=== PATIENT | male | born 1945 | race Caucasian/White ===

== ENCOUNTER 2019-03-05 21:37 | Inpatient (IN) | payer MEDICAID, MEDICARE ==
[~2019-03-05] VITALS: Ht 175.3 cm; Wt 82.8 kg
[~2019-03-05 21:37] MED LIST: ALBU8.5H8 INH; FLUT9.9S NS; PRED20TA PO
[2019-03-05] MEDS ORDERED: HYDROCORTISONE SOD SUCCINATE 100 MG/2 ML VIAL IV ONE ×3 (22:15→23:58)
[2019-03-05] MEDS ORDERED: IV NORMAL SALINE 1000 ML BAG IV ONE (22:15)
[2019-03-05] MEDS ORDERED: DEXAMETHASONE SOD PHOSPHATE 4 MG INJ IV ONE (22:15)
[2019-03-05] MEDS ORDERED: CEFTRIAXONE 1 G in IV DEXTROSE 5% 50 ML IV ONE (22:15)
[2019-03-05] MEDS ORDERED: GENTAMICIN SULFATE INJ 80 MG in IV DEXTROSE 5% 100 ML IV ONE (22:15)
[2019-03-05] MEDS ORDERED: VANCOMYCIN IV 1,000 MG in IV DEXTROSE 5% 250 ML IV ONE (22:15)
--- NOTE | 2019-03-05 22:15 | NUR ---
Pt is brought in to ER by girlfriend and friend via wheelchair with c/o chills, body ache, nausea, and vomiting that started this am. Pt placed on ic engineer, showing normal sinus rhythm. SA02 98% room air. Vital signs stable. Pt is AAOx3.
[2019-03-05 22:24] LABS: BASOPHILS # (AUTO) 0.1 K/uL (0.0-8.0); BASOPHILS % (AUTO) 0.3 % (0.0-2.0); CARBON DIOXIDE 17 mmol/L (21-32); CHLORIDE 105 mmol/L (98-107); EOSINOPHILS % (AUTO) 0.1 % (0.0-7.0); GLUCOSE 151 mg/dL (74-106); HEMATOCRIT 49.8 % (36.7-47.1); HEMOGLOBIN 16.5 g/dL (12.5-16.3); LYMPHOCYTES # (AUTO) 4.5 K/uL (20.0-40.0); LYMPHOCYTES % (AUTO) 26.4 % (20.5-51.5); MEAN CORPUSCULAR HEMOGLOBIN 31.7 uug (23.8-33.4); MEAN CORPUSCULAR HGB CONC 33 g/dL (32.5-36.3); MEAN CORPUSCULAR VOLUME 95.3 fL (73.0-96.2); MONOCYTES # (AUTO) 1.1 K/uL (2.0-10.0); MONOCYTES % (AUTO) 6.7 % (0.0-11.0); NEUTROPHILS # (AUTO) 11.3 K/uL (1.8-8.9); NEUTROPHILS % (AUTO) 66.5 % (38.5-71.5); PLATELET COUNT (AUTO) 375 K/uL (152-348); POTASSIUM 4.4 mmol/L (3.5-5.1); RED BLOOD CELL COUNT(AUTO) 5.22 MIL/uL (4.06-5.63); UREA NITROGEN, BLOOD 23 mg/dL (7-18)
[2019-03-05] MEDS ORDERED: CEFTRIAXONE 1 G VIAL ONE (22:24)
[2019-03-05] MEDS ORDERED: DEXAMETHASONE SOD PHOSPHATE 10 MG INJ ONE (22:25)
[2019-03-05] MEDS ORDERED: LOSA25TA27 PO (22:29)
[2019-03-05] MEDS ORDERED: symbicort INH (22:29)
[2019-03-05] MEDS ORDERED: ALLO100T PO (22:29)
[2019-03-05] MEDS ORDERED: ONDANSETRON IV *ER 4 MG/2 ML VIAL IV ONE (22:30)
[2019-03-05] MEDS ORDERED: ONDANSETRON 4 MG/2 ML VIAL ONE (22:30)
[2019-03-05] MEDS ORDERED: MONT10TA22 PO (22:30)
[2019-03-05 22:37] LABS: ALANINE AMINOTRANSFERASE 68 U/L (16-63); ALKALINE PHOSPHATASE 82 U/L (50-136); ASPARTATE AMINOTRANSFERASE 27 U/L (15-37); BILIRUBIN,DIRECT 0.3 mg/dL (0.0-0.2); BILIRUBIN,TOTAL 1.1 mg/dL (0.2-1.0)
[2019-03-05] MEDS ORDERED: VANCOMYCIN IV 200 ML ONE (22:57)
--- NOTE | 2019-03-05 23:03 | NUR ---
Pt states he's starting to feel better.
--- NOTE | 2019-03-05 23:25 | NUR ---
Pt provided urine sample, sent to lab.
[2019-03-05 23:50] LABS: *BILIRUBIN,URIN NEGATIVE (NEGATIVE); *BLOOD, URINE NEGATIVE (NEGATIVE); *CLARITY,URINE CLEAR (CLEAR); *COLOR,URINE YELLOW (YELLOW); *KETONES,URINE 3+ (NEGATIVE); *UROBILINOGEN,URINE 0.2 E.U./dl (NORMAL); LEUKOCYTE ESTERASE ,URINE NEGATIVE (NEGATIVE); NITRITE, URINE NEGATIVE (NEGATIVE); UGLUCOSE NEGATIVE (NEGATIVE)
[2019-03-05] MEDS ORDERED: IV NS 1000 ML 1,000 ML IV ONE (23:50)
[2019-03-05] MEDS ORDERED: GENTAMICIN SULFATE 80 MG/2 ML VIAL ONE (23:52)
[2019-03-05 23:56] LABS: BACTERIA,URINE NONE SEEN /HPF (NONE SEEN); MUCUS,URINE MODERATE /LPF (0-FEW); SQUAMOUS EPITHELIAL CELL,UR FEW /HPF (NONE SEEN); WBC,URINE 0-3 /HPF (0-3)
[2019-03-06] MEDS ORDERED: HYDROCORTISONE SOD SUCCINATE 100 MG/2 ML VIAL IV ONE
[2019-03-06] MEDS ORDERED: ONDANSETRON 4 MG/2 ML VIAL ONE (00:14)
[2019-03-06] MEDS ORDERED: ONDANSETRON IV *ER 4 MG/2 ML VIAL IV ONE (00:15)
--- NOTE | 2019-03-06 00:20 | NUR ---
2nd lactic acid blood drawn, sent to lab.
--- NOTE | 2019-03-06 00:28 | NUR ---
Paged [facility] for panel call. Pending call back from Dr. Genao.
--- NOTE | 2019-03-06 00:30 | NUR ---
ALPHONSO Henriquez MD, speaking to Dr. Genao on telephone.
--- NOTE | 2019-03-06 00:37 | NUR ---
Pt. admitted to Telemetry, under care of Dr. Genao. Diagnosis: Septic Shock. Belongs List completed
[2019-03-06 01:00] VITALS: BP 156/73
--- NOTE | 2019-03-06 01:00 | NUR ---
Admitted a 74 years old male with Diagnosis of Sepsis. Accompanied by patient KURT Mcneil. Patient AAOx4. In no acute distress. Denies any pain or SOB at this time. IV site on right FA intact and patent with Gentamicin IV ABX infusing. IV site on left AC intact and patent, with IVF infusing. NSR on tele at 84/min. Routine admission care done. Plan of care initiated. Safety measure initiated and call gordon within reach.
[2019-03-06] MEDS ORDERED: ACETAMINOPHEN 325 MG TABLET PO PRN (01:30)
[2019-03-06] MEDS ORDERED: ZOLPIDEM 5 MG TABLET PO PRN (01:30)
[2019-03-06] MEDS ORDERED: Z GUARD REMEDY PASTE 57 GM TUBE TOP PRN (01:30)
[2019-03-06] MEDS ORDERED: HYDROCODONE/APAP 5-325MG TABLET PO PRN (01:30)
[2019-03-06] MEDS ORDERED: MAGNESIUM HYDROXIDE 30 ML LIQUID UDC PO PRN (01:30)
[2019-03-06] MEDS ORDERED: PIPERACILLIN/TAZOBACTAM/D5W 3.375 G in PREMIXED 1 EACH IV ONE (02:00)
[2019-03-06] MEDS ORDERED: PIPERACILLIN/TAZOBACTAM/D5W 50 ML IV ONE (02:25)
[2019-03-06 05:44] VITALS: BP 151/74
--- NOTE | 2019-03-06 06:14 | NUR ---
AAOx4. In no acute distress. Denies any pain or SOB. IV site on right FA intact and patent IVF infusing. IV site on left AC intact and patent. NSR on tele at 92/min. No adverse reaction noted from IV ABX. Denies any dizziness, n/v and chills. Safety measure maintained and call gordon within reach.
--- NOTE | 2019-03-06 08:01 | NUR ---
Received patient. In no acute distress. A+Ox4. Pt denies any pain or SOB. B/S clear/diminished. IV site on right FA intact and patent IVF infusing. IV site on left AC intact and patent. NSR on tele.Denies any dizziness, n/v and chills at this time. Bed in low position. Safety measure maintained and call gordon within reach.
[2019-03-06] MEDS: HYDROCORTISONE SOD SUCCINATE 100 MG/2 ML VIAL IV SCH ×2 (08:41→20:29)
[2019-03-06] MEDS: ALLOPURINOL 100 MG TABLET PO SCH ×2 (08:41→16:21)
[2019-03-06] MEDS: IV NS 1000 ML 1,000 ML IV PRN (09:32)
--- NOTE | 2019-03-06 09:40 | NUR ---
PATIENT SEEN AND EXAMINED BY DR DIANE WITH NEW ORDERS AND NOTED.
[2019-03-06 10:12] LABS: BASOPHILS % (AUTO) 0.3 % (0.0-2.0); EOSINOPHILS % (AUTO) 0.2 % (0.0-7.0); HEMATOCRIT 45.2 % (36.7-47.1); LYMPHOCYTES # (AUTO) 1.2 K/uL (20.0-40.0); LYMPHOCYTES % (AUTO) 8.6 % (20.5-51.5); MEAN CORPUSCULAR HEMOGLOBIN 31.8 uug (23.8-33.4); MEAN CORPUSCULAR HGB CONC 33 g/dL (32.5-36.3); MEAN CORPUSCULAR VOLUME 95.8 fL (73.0-96.2); MONOCYTES # (AUTO) 0.2 K/uL (2.0-10.0); MONOCYTES % (AUTO) 1.7 % (0.0-11.0); NEUTROPHILS # (AUTO) 12.9 K/uL (1.8-8.9); NEUTROPHILS % (AUTO) 89.2 % (38.5-71.5); PLATELET COUNT (AUTO) 321 K/uL (152-348); RED BLOOD CELL COUNT(AUTO) 4.72 MIL/uL (4.06-5.63); WHITE BLOOD COUNT (AUTO) 14.5 K/uL (3.6-10.2)
[2019-03-06 10:22] LABS: CARBON DIOXIDE 21 mmol/L (21-32); CHLORIDE 109 mmol/L (98-107); CREATININE 1.8 mg/dL (0.6-1.3); GLUCOSE 150 mg/dL (74-106); POTASSIUM 4.2 mmol/L (3.5-5.1); UREA NITROGEN, BLOOD 19 mg/dL (7-18)
[2019-03-06 10:25] LABS: CARBON DIOXIDE 21 mmol/L (21-32); CHLORIDE 110 mmol/L (98-107); CREATININE 1.8 mg/dL (0.6-1.3); GLUCOSE 151 mg/dL (74-106); POTASSIUM 4.1 mmol/L (3.5-5.1); UREA NITROGEN, BLOOD 22 mg/dL (7-18); VANCOMYCIN,RANDOM 10.2 ug/mL (18.0-26.0)
[2019-03-06 10:33] LABS: THYROID STIMULATING HORMONE 0.479 mIU/mL (0.358-3.740)
--- NOTE | 2019-03-06 10:38 | NUR ---
CLINICAL PHARMACY NOTE:VANCOMYCIN DOSING S To start vancomycin dosing on 74 y/o male patient for sepsis O Temp 97.7 BUN 18 Scr 1.8 WBC 14.5 Assessment/Plan Due to unstable/elevated srcr, will dose by random level. Patient received vanco 1gm IVPB x1 on 03/05 at 2300. Since vanco random level today is 10.2, Will give vanco 1250mg IVPB x1 today at 1100. Pharmacy shall review srcr in am & decide when to order next random level for further dosing. Will follow.
--- NOTE | 2019-03-06 10:48 | NUR ---
Lab contacted floor. lactic acid of 2.2 @ 1030
[2019-03-06 10:54] LABS: ALANINE AMINOTRANSFERASE 116 U/L (16-63); ALKALINE PHOSPHATASE 66 U/L (50-136); ASPARTATE AMINOTRANSFERASE 62 U/L (15-37); BILIRUBIN,TOTAL 0.8 mg/dL (0.2-1.0); CHOLESTEROL 181 mg/dL (<200); HDL CHOLESTEROL 57 mg/dL (40-60); MAGNESIUM 1.6 mg/dL (1.8-2.4); PHOSPHOROUS 3.1 mg/dL (2.5-4.9); TOTAL PROTEIN, SERUM 7.1 g/dL (6.4-8.2); TRIGLYCERIDES 49 MG/DL (30-150)
[2019-03-06 11:00] VITALS: BP 163/79
[2019-03-06] MEDS ORDERED: VANCOMYCIN IV 1,250 MG in IV DEXTROSE 5% 500 ML IV ONE (11:00)
[2019-03-06] MEDS: PIPERACILLIN/TAZOBACTAM/D5W 3.375 G in PREMIXED 1 EACH IV SCH ×2 (11:04→18:03)
--- NOTE | 2019-03-06 12:36 | NUR ---
Pt's BP is 163/79. Pt is asymptomatic. No signs of distress noted. Contacted Dr. Vuong. Left message for Dr. Vuong making him aware of pt's condition. Awaiting 's response.
[2019-03-06] MEDS: CLONIDINE HCL 0.1 MG TABLET PO PRN (13:01)
--- NOTE | 2019-03-06 14:55 | NUR ---
Contacted Dr. Vuong. Pt stated feeling slight SOB when ambulating to bathroom and back to bed. Awaiting for 's call back.
[2019-03-06] MEDS: FLUTICASONE/VILANTEROL 1 EACH BLST.W.DEV INH SCH (15:15)
[2019-03-06] MEDS ORDERED: ALBUTEROL SULFATE 2.5 MG/3 ML NEBU NEB PRN (15:15)
--- NOTE | 2019-03-06 15:20 | NUR ---
Dr. Vuong called back regarding Pt's SOB condition. stated that he will place orders. No acute distress noted at this time.
[2019-03-06 16:00] VITALS: BP 130/79
[2019-03-06] MEDS ORDERED: MAGNESIUM SULFATE/D5W 100 ML IV SCH (16:00)
--- NOTE | 2019-03-06 16:56 | NUR ---
PT REFUSED BREO-ELLIPTA 100-25 MCG 1 PUFF ONCE DAILY @ 1515. PT STATED USUALLY NOT FEELING WELL AFTER TAKING THIS MEDICATION. PT STATES BREATHING WELL. NO SOB AFTER VENTOLIN HHN ADMINISTERED BY RT. NO ACUTE DISTRESS NOTED @THIS TIME.
[2019-03-06] MEDS ORDERED: MONTELUKAST SODIUM 10 MG TABLET PO SCH (18:00)
[2019-03-06] MEDS: MONTELUKAST SODIUM 10 MG TABLET PO SCH (18:02)
--- NOTE | 2019-03-06 18:41 | NUR ---
PT RESTING COMFORTABLY IN BED. PT A+OX4. NO ACUTE DISTRESS NOTED AT THIS TIME. NO SOB NOTED AT THIS TIME. CONTINUE TO MONITOR. CONTINUE PLAN OF CARE.
--- NOTE | 2019-03-06 19:00 | NUR ---
AWAKE ALERT X3, NO COMLAINTS , VITAL SIGNS STABLE NO SOB. IN NO ACUTE DISTRESS.,
[2019-03-06 19:24] LABS: *BILIRUBIN,URIN NEGATIVE (NEGATIVE); *BLOOD, URINE NEGATIVE (NEGATIVE); *CLARITY,URINE CLEAR (CLEAR); *COLOR,URINE YELLOW (YELLOW); *KETONES,URINE NEGATIVE (NEGATIVE); *UROBILINOGEN,URINE 0.2 E.U./dl (NORMAL); LEUKOCYTE ESTERASE ,URINE NEGATIVE (NEGATIVE); NITRITE, URINE NEGATIVE (NEGATIVE); PH,URINE 5.5 (5.0-8.0); UGLUCOSE NEGATIVE (NEGATIVE)
[2019-03-06 19:31] LABS: *CREATININE,URINE 144.5 mg/dL (30-125); *URINE TOTAL PROTEIN RANDOM 40.7 mg/dL (<150/24HR)
[2019-03-06 19:33] LABS: BACTERIA,URINE NONE SEEN /HPF (NONE SEEN); SQUAMOUS EPITHELIAL CELL,UR NONE SEEN /HPF (NONE SEEN)
[2019-03-06 19:34] LABS: RBC,URINE 0-3 /HPF (0-3); WBC,URINE 0-3 /HPF (0-3)
[2019-03-06 19:42] VITALS: BP 141/72
[2019-03-06] MEDS: ATORVASTATIN 10 MG TABLET PO SCH (20:29)
[2019-03-07] VITALS: BP 140/80
[2019-03-07] MEDS: IV NS 1000 ML 1,000 ML IV PRN (00:30)
[2019-03-07] MEDS: PIPERACILLIN/TAZOBACTAM/D5W 3.375 G in PREMIXED 1 EACH IV SCH (03:30)
[2019-03-07 04:22] VITALS: BP 126/71
--- NOTE | 2019-03-07 05:01 | NUR ---
slept most of the nite,no complaints made,in no acute distress. telemetry sinus rhythm ,sinus myrna.
[2019-03-07 06:32] LABS: HEMATOCRIT 39.8 % (36.7-47.1); HEMOGLOBIN 13.2 g/dL (12.5-16.3); LYMPHOCYTES # (AUTO) 2.4 K/uL (20.0-40.0); LYMPHOCYTES % (AUTO) 11.4 % (20.5-51.5); MEAN CORPUSCULAR HEMOGLOBIN 32.2 uug (23.8-33.4); MEAN CORPUSCULAR HGB CONC 33 g/dL (32.5-36.3); MONOCYTES # (AUTO) 1.3 K/uL (2.0-10.0); MONOCYTES % (AUTO) 6.2 % (0.0-11.0); NEUTROPHILS # (AUTO) 17.5 K/uL (1.8-8.9); NEUTROPHILS % (AUTO) 82.4 % (38.5-71.5); PLATELET COUNT (AUTO) 279 K/uL (152-348); WHITE BLOOD COUNT (AUTO) 21.3 K/uL (3.6-10.2)
[2019-03-07 06:49] LABS: CARBON DIOXIDE 21 mmol/L (21-32); CHLORIDE 113 mmol/L (98-107); CREATINE KINASE, TOTAL 159 U/L (39-308); CREATININE 1.9 mg/dL (0.6-1.3); GLUCOSE 107 mg/dL (74-106); MAGNESIUM 2.2 mg/dL (1.8-2.4); PHOSPHOROUS 4.1 mg/dL (2.5-4.9); POTASSIUM 3.9 mmol/L (3.5-5.1); UREA NITROGEN, BLOOD 25 mg/dL (7-18)
--- NOTE | 2019-03-07 07:45 | NUR ---
Received patient without signs of acute distress. A+Ox4. Pt denies any pain or SOB. B/S clear/diminished. IV site on right FA intact and patent IVF infusing. NSR on tele.Denies any dizziness, n/v and chills at this time. Bed in low position. Safety measure maintained and call gordon within reach.
[2019-03-07] MEDS: FLUTICASONE/VILANTEROL 1 EACH BLST.W.DEV INH SCH (09:00)
[2019-03-07] MEDS: HYDROCORTISONE SOD SUCCINATE 100 MG/2 ML VIAL IV SCH (09:19)
[2019-03-07] MEDS: ALLOPURINOL 100 MG TABLET PO SCH ×2 (09:19→17:35)
[2019-03-07] MEDS: IV 1/2NS 1000 ML 1,000 ML IV PRN (10:59)
[2019-03-07] MEDS ORDERED: LEVOFLOXACIN 250MG /D5W 250 MG in PREMIXED 1 EACH IV SCH (11:30)
[2019-03-07 12:08] VITALS: BP 131/73
--- NOTE | 2019-03-07 12:45 | NUR ---
PT STATES OPTIMISM IN POSSIBILITY OF BEING DISCHARGED TODAY. EXPLAINED TO PT THAT MD WILL NEED TO EVALUATE AND WRITE DISCHARGE ORDERS. PT RESTING COMFORTABLY IN BED. PT A+OX4. NO ACUTE DISTRESS NOTED AT THIS TIME. NO SOB NOTED AT THIS TIME. CONTINUE TO MONITOR. CONTINUE PLAN OF CARE.
[2019-03-07 16:00] VITALS: BP 154/97
[2019-03-07] MEDS: CLONIDINE HCL 0.1 MG TABLET PO PRN (16:55)
--- NOTE | 2019-03-07 16:55 | NUR ---
informed Dr Joe that pt tolerated walking in the hallway well earlier, no shortness of breath, no dizziness but BP 154/97- catapres 0.1 mg po given
[2019-03-07] MEDS ORDERED: ACET325T53 PO (16:56)
[2019-03-07] MEDS ORDERED: MONT10TA22 PO (16:56)
[2019-03-07] MEDS ORDERED: LEVO500T2 PO (16:56)
[2019-03-07] MEDS ORDERED: ATOR10TA PO (16:56)
--- NOTE | 2019-03-07 16:59 | NUR ---
change of rhythm- atrial fib 130's, pt denies of chest pain, BP checked- 181/100 , informed Dr Masters.
[2019-03-07 17:00] VITALS: BP 181/100
[2019-03-07] MEDS ORDERED: APIXABAN 5 MG TABLET PO SCH (17:15)
--- NOTE | 2019-03-07 17:15 | NUR ---
remains on afib/flutter 140, stat EKG ordered, informed Dr Berumen(county manager) informed of change of rhythm
[2019-03-07] MEDS: MONTELUKAST SODIUM 10 MG TABLET PO SCH (17:35)
--- NOTE | 2019-03-07 17:59 | NUR ---
pt transferred as tele-TD- to have amiodarone bolus followed by a drip- report given to Mohini THAPA, pt seen by Dr Berumen and Dr Iverson spoke to him at length as well
[2019-03-07] MEDS ORDERED: HEPARIN/D5W DRIP 500 ML IV PRN (18:00)
[2019-03-07] MEDS ORDERED: AMIODARONE HCL IV 900 MG in IV DEXTROSE 5% 482 ML IV PRN (18:00)
[2019-03-07] MEDS ORDERED: AMIODARONE HCL IV 150 MG in IV DEXTROSE 5% 100 ML IV ONE (18:00)
--- NOTE | 2019-03-07 18:30 | NUR ---
Report received from Kelin Mendez at this time as reported patient sustaining A-fib rhythm since 1658. As reported Automobile Upholsterer Apprentice Dr. Hernandez notified and patient is to be started on amiodarone drip and heparin drip. Dr. Vuong in the unit at this very moment to speak with patient and discuss care plan. After speaking with both patient and analytics specialist Dr. [place] heparin dcd and patient started on amiodarone drip. bolus dose given patient at this time with heart rat in the A-fib of 160's-170's sbp above 160's. aware and present in the room. Patient left with amiodarone drip at 1mcg/min. as PP. at [facility].
--- NOTE | 2019-03-07 19:14 | NUR ---
Report given to Kelin MCCLURE
[2019-03-07] MEDS: APIXABAN 5 MG TABLET PO SCH (19:57)
[2019-03-07 20:00] VITALS: BP 154/96
[2019-03-07] MEDS: ATORVASTATIN 10 MG TABLET PO SCH (20:00)
--- NOTE | 2019-03-07 20:00 | NUR ---
Received patient sitting in bed. AAOX4. In no acute distress. Denies any pain, palpitations or SOB. Patient converted to NSR at 1928, with PAC's and PVC's at 68/min. IV site on right FA and left AC intact and patent. Amiodarone IV drip on going. IVF also infusing. Needs assessed and attended to. Safety measure initiated and call gordon within reach.
[2019-03-08] VITALS: BP 115/55
[2019-03-08] MEDS: IV 1/2NS 1000 ML 1,000 ML IV PRN (00:58)
--- NOTE | 2019-03-08 01:00 | NUR ---
Decreased Amiodarone drip to 0.5mg/ml as per protocol.
[2019-03-08 04:00] VITALS: BP 155/83
--- NOTE | 2019-03-08 06:17 | NUR ---
Patient slept well last night. Remains AOX4. In no acute distress. Denies any chest pain, palpitations or SOB. NSR with occasional PAC's and PVC's at 72/min. IV site on right FA intact and patent. Amiodarone IV drip on going. IVF infusing. Needs attended to and met. Safety measure maintained and call gordon within reach.
[2019-03-08 06:32] LABS: BASOPHILS % (AUTO) 0.2 % (0.0-2.0); EOSINOPHILS # (AUTO) 0.1 K/uL (0.0-0.7); EOSINOPHILS % (AUTO) 0.8 % (0.0-7.0); HEMATOCRIT 39.4 % (36.7-47.1); HEMOGLOBIN 12.9 g/dL (12.5-16.3); LYMPHOCYTES % (AUTO) 28.2 % (20.5-51.5); MEAN CORPUSCULAR HEMOGLOBIN 31.8 uug (23.8-33.4); MEAN CORPUSCULAR HGB CONC 33 g/dL (32.5-36.3); MEAN CORPUSCULAR VOLUME 96.9 fL (73.0-96.2); MONOCYTES # (AUTO) 1.6 K/uL (2.0-10.0); MONOCYTES % (AUTO) 8.9 % (0.0-11.0); NEUTROPHILS % (AUTO) 61.9 % (38.5-71.5); PLATELET COUNT (AUTO) 267 K/uL (152-348); RED BLOOD CELL COUNT(AUTO) 4.07 MIL/uL (4.06-5.63); WHITE BLOOD COUNT (AUTO) 17.8 K/uL (3.6-10.2)
[2019-03-08 06:43] LABS: CARBON DIOXIDE 21 mmol/L (21-32); CHLORIDE 114 mmol/L (98-107); CREATININE 1.5 mg/dL (0.6-1.3); GLUCOSE 80 mg/dL (74-106); PHOSPHOROUS 2.5 mg/dL (2.5-4.9); POTASSIUM 3.4 mmol/L (3.5-5.1); UREA NITROGEN, BLOOD 26 mg/dL (7-18)
[2019-03-08] MEDS: ALLOPURINOL 100 MG TABLET PO SCH ×2 (07:49→17:21)
[2019-03-08] MEDS: FLUTICASONE/VILANTEROL 1 EACH BLST.W.DEV INH SCH (07:50)
[2019-03-08] MEDS: APIXABAN 5 MG TABLET PO SCH ×2 (07:52→17:21)
[2019-03-08 08:02] VITALS: BP 144/77
[2019-03-08 10:06] LABS: A/G RATIO 1.2 (0.7-1.7); ALPHA-1-GLOBULIN 0.2 g/dL (0.0-0.4); ALPHA-2-GLOBULIN 0.7 g/dL (0.4-1.0); BETA GLOBULIN 0.9 g/dL (0.7-1.3); GAMMA GLOBULIN 0.9 g/dL (0.4-1.8); GLOBULIN, TOTAL 2.6 g/dL (2.2-3.9); M-SPIKE Not Observed g/dL (Not Observed)
[2019-03-08] MEDS ORDERED: POTASSIUM CHLORIDE 20 MEQ TAB.PRT.SR PO ONE (11:00)
[2019-03-08 11:11] VITALS: BP 135/67
[2019-03-08] MEDS: ONDANSETRON 4 MG/2 ML VIAL IV PRN ×2 (11:23→17:28)
--- NOTE | 2019-03-08 14:38 | NUR ---
US tech at the bedside for 2D Echocardiogram.
[2019-03-08] MEDS: CLONIDINE HCL 0.1 MG TABLET PO PRN ×2 (14:40→14:45)
--- NOTE | 2019-03-08 14:46 | NUR ---
Pt refused clonidine PRN in light of high blood pressure SBP 165/88. Educated pt, but pt continued to refuse and claimed that it would bring his blood pressure up. made aware. Addendum: 03/08/19 at 1519 by JUSTYNA WOODARD RN New orders received.
[2019-03-08] MEDS ORDERED: hydrALAZINE HCL 25 MG TABLET PO PRN (15:15)
[2019-03-08 15:26] VITALS: BP 165/88
[2019-03-08] MEDS ORDERED: METOPROLOL TARTRATE 25 MG TABLET PO SCH (16:30)
[2019-03-08] MEDS: MONTELUKAST SODIUM 10 MG TABLET PO SCH ×3 (17:19→17:26)
[2019-03-08 17:21] VITALS: BP 171/73
[2019-03-08] MEDS ORDERED: METO25TA6 PO (17:39)
[2019-03-08] MEDS ORDERED: APIX5TAB PO (17:39)
[2019-03-08] MEDS ORDERED: AMOX-427 PO (17:49)
--- NOTE | 2019-03-08 18:34 | NUR ---
Pt discharged to home via wheelchair. Pt stable and nad noted upon leaving the floor. Discharge instructions provided and discussed with the pt. Meds and prescription reconciled by MD and reviewed with the pt. Pt verbalized understanding of discharge instructions and medications. Belongings sheet reviewed and signed. PIV removed.
== END 2019-03-08 18:35 | disposition home or self-care (01) | DRG 871 ==
LOC: ER 21:39 → TELE3 03-06 00:30 → TELE-TD3 03-07 18:03 → MEDSURG3 03-08 13:19
PROVIDERS: ADMIT Internal Medicine; ATTEND Internal Medicine
DX: A41.9 Sepsis, unspecified organism (principal); N17.0 Acute kidney failure with tubular necrosis; J18.9 Pneumonia, unspecified organism; E27.40 Unspecified adrenocortical insufficiency; E87.2 Acidosis; J44.0 Chronic obstructive pulmonary disease with (acute) lower respiratory infection; D68.59 Other primary thrombophilia; Z79.51 Long term (current) use of inhaled steroids; E83.42 Hypomagnesemia; Z79.52 Long term (current) use of systemic steroids; E78.5 Hyperlipidemia, unspecified; J31.0 Chronic rhinitis; I48.0 Paroxysmal atrial fibrillation; N28.1 Cyst of kidney, acquired; Z74.09 Other reduced mobility; I12.9 Hypertensive chronic kidney disease with stage 1 through stage 4 chronic kidney disease, or unspecified chronic kidney disease; N18.9 Chronic kidney disease, unspecified
CPT/HCPCS: 36415; 70030-TC; 71045; 76770; 83605; 83735; 83970; 84100; 84155; 84156; 84165; 84300; 84443; 85025; 85730; 87040; 87086; 87400; 93005; 93307; 94664; A4663; G0378; J0282; J0696; J1100; J1580; J1644; J1720; J1956; J2405; J2543; J3370; J3475; J3490; J7030; J7040; J7060; J8499

== ENCOUNTER 2022-05-15 14:24 | Emergency (ER) | payer MEDICARE, OTHER ==
[~2022-05-15] VITALS: Ht 175.3 cm; Wt 88.5 kg
[~2022-05-15 14:24] MED LIST changes: +ACET325T53 PO; -ALBU8.5H8 INH; +ALLO100T PO; +AMOX-427 PO; +APIX5TAB PO; +ATOR10TA PO; +FLUT16SP16 NS; -FLUT9.9S NS; +LOSA25TA27 PO; +METO25TA6 PO; +MONT10TA22 PO; +symbicort INH
[2022-05-15] MEDS ORDERED: ONDANSETRON 4 MG/2 ML VIAL IV ONE (15:15)
[2022-05-15] MEDS ORDERED: IV NORMAL SALINE 1000 ML BAG IV ONE (15:15)
[2022-05-15 15:25] LABS: HEMATOCRIT 44.2 % (36.7-47.1); MEAN CORPUSCULAR HEMOGLOBIN 33.3 uug (23.8-33.4); MEAN CORPUSCULAR VOLUME 101.4 fL (73.0-96.2); PLATELET COUNT (AUTO) 339 K/uL (152-348)
[2022-05-15 15:30] LABS: CARBON DIOXIDE 24 mmol/L (21-32); CHLORIDE 104 mmol/L (98-107); CREATININE 2.1 mg/dL (0.6-1.3); GLUCOSE 142 mg/dL (74-106); POTASSIUM 3.9 mmol/L (3.5-5.1); UREA NITROGEN, BLOOD 30 mg/dL (7-18)
[2022-05-15] MEDS ORDERED: KETOROLAC TROMETHAMINE 15 MG INJ IVP ONE (15:30)
[2022-05-15 15:36] LABS: ALANINE AMINOTRANSFERASE 54 U/L (16-63); ALKALINE PHOSPHATASE 75 U/L (50-136); ASPARTATE AMINOTRANSFERASE 24 U/L (15-37); BILIRUBIN,TOTAL 0.7 mg/dL (0.2-1.0); TOTAL PROTEIN, SERUM 7.5 g/dL (6.4-8.2)
[2022-05-15] MEDS ORDERED: KETOROLAC TROMETHAMINE 15 MG INJ ONE (16:12)
[2022-05-15] MEDS ORDERED: ONDANSETRON 4 MG/2 ML VIAL ONE (16:12)
[2022-05-15 17:25] LABS: CARBON DIOXIDE 25 mmol/L (21-32); CHLORIDE 107 mmol/L (98-107); CREATININE 2.1 mg/dL (0.6-1.3); GLUCOSE 117 mg/dL (74-106); UREA NITROGEN, BLOOD 29 mg/dL (7-18)
--- NOTE | 2022-05-15 18:49 | NUR ---
Physician's orders carried out. Patient has no acute distress. Denies any discomfort. Verbalized resolution of complaints. Patient IV discontinued. Discussion of home care and instructions provided. No complaints. Discharged in stable condition.
--- NOTE | 2022-05-15 18:52 | NUR ---
iv discontinued, site secured with pressure dressing. Patient discharged to home in stable condition. Written and verbal after care instructions given. Patient verbalizes understanding of instructions. Stressed follow up or return to ER for worsening s/s.
[2022-05-16] MEDS ORDERED: ALLO100T PO (11:43)
[2022-05-16] MEDS ORDERED: PRED2.5T PO ×2 (11:43)
[2022-05-16] MEDS ORDERED: LOSA1TAB36 PO (11:43)
[2022-05-16] MEDS ORDERED: SOTA80TA PO (11:43)
[2022-05-17] MEDS ORDERED: BUDE10.2 IH (13:52)
[2022-05-20] MEDS ORDERED: DILT120C87 PO (14:32)
== END 2022-05-15 18:53 | disposition home or self-care (01) ==
LOC: ER 14:26
DX: R10.9 Unspecified abdominal pain (principal); I10 Essential (primary) hypertension; I48.0 Paroxysmal atrial fibrillation; Z79.899 Other long term (current) drug therapy; N17.9 Acute kidney failure, unspecified; N20.0 Calculus of kidney; N28.1 Cyst of kidney, acquired; K57.30 Diverticulosis of large intestine without perforation or abscess without bleeding; K76.0 Fatty (change of) liver, not elsewhere classified; Z87.442 Personal history of urinary calculi; D72.829 Elevated white blood cell count, unspecified; Z79.52 Long term (current) use of systemic steroids
CPT/HCPCS: 99285; 74176; 96374; 96375; 80053; 82248; 83690; 85025; 84484; 36415; 93005; 83605 ×2; 80048; J1885; J2405; J7040; A4663